=== PATIENT | female | born 1955 | race Caucasian/White ===

== ENCOUNTER → 2017-04-12 | Outpatient (CLI) | payer OTHER ==
[~2017-04-12] MED LIST: ALPR0.254 PO; BUPR300T4 PO; FAMO-63 PO; MULT1TAB52 PO; OXYC-328 PO; POLY17PO29 PO
[2017-04-12 10:41] LABS: BASO % 0 % (0-3); EOS % 0 % (0-3); HEMATOCRIT 42.5 % (36.0-47.0); LYMPH # 7.7 x10^3/uL (1.0-4.8); LYMPH % 59 % (24-48); MEAN CORPUSCULAR HEMOGLOBIN 31 pg (25-35); MEAN CORPUSCULAR HGB CONC 33 g/dL (31-37); MEAN CORPUSCULAR VOLUME 95 fL (79-100); MONO % 4 % (0-9); NEUT % 37 % (31-73); PLATELET COUNT 254 x10^3/uL (140-400); RED BLOOD COUNT 4.49 x10^6/uL (3.50-5.40); RED CELL DISTRIBUTION WIDTH 16.9 % (11.5-14.5)
[2017-04-12 10:57] LABS: ALBUMIN 3.7 g/dL (3.4-5.0); ALBUMIN/GLOBULIN RATIO 1.1 (1.0-1.7); CALCIUM 9.3 mg/dL (8.5-10.1); CREATININE 0.8 mg/dL (0.6-1.0); GFR 72.4; POTASSIUM 3.9 mmol/L (3.5-5.1); TOTAL BILIRUBIN 0.3 mg/dL (0.2-1.0); TOTAL PROTEIN 7.1 g/dL (6.4-8.2)
--- NOTE | 2017-04-12 11:25 | HP ---
ADMIT DATE: DATE OF SURGERY: 04/12/2017. Kana Hoang dictating for Dr. Yosvany Mccarthy. HISTORY OF PRESENT ILLNESS: This is a pleasant 61-year-old who has low back pain and a stabbing pain, which radiates into her right buttock and right posterior thigh. The problem began on 01/05/2017. She said on 01/17/2017, the symptoms became severe. The problem started spontaneously. She rates her pain as a 4/10 with oxycodone. She says it is to 9-10/10 without medications. Sitting and walking increases her pain. Lying on her left side with activity helps. She is unable to drive because of severe pain. She cannot sit for any length of time because of severe pain. Epidural steroid injections as well as physical therapy have been tried without success. PAST MEDICAL HISTORY: No past medical history. PAST SURGICAL HISTORY: Did have lumbar surgery x 2 in 2004, , lumbar diskectomy 2007, cholecystectomy in 2012. FAMILY HISTORY: Cancer, diabetes, heart problems/disease, hypertension, migraine. SOCIAL HISTORY: Retired. . Exercises weekly. Denies substance abuse. Drinks alcohol one to two times per month. Drinks coffee daily. ALLERGIES: ERYTHROMYCIN, BACTRIM AND DEXILANT. CURRENT MEDICATIONS: Bupropion, alprazolam, oxycodone, and MiraLax. REVIEW OF SYSTEMS: A 12-point review of systems was obtained and is noncontributory except for that mentioned above. PHYSICAL EXAMINATION: NEUROSURGERY EXAMINATION: GENERAL APPEARANCE: Alert, pleasant, no acute distress. HEAD: Normocephalic and atraumatic. SKIN: Warm and dry. MUSCULOSKELETAL: Lumbar paraspinal muscle bulk is normal, restricted motion of lumbar spine. Moderate tenderness of lower lumbar spine with palpation, normal range of motion of the lower extremities bilaterally except for limitation. Straight leg raising on the right. EXTREMITIES: No clubbing, cyanosis or edema. NEUROLOGIC: Alert and oriented x 3, normal recent and remote memory, strength 5/5 in bilateral lower extremities, sensory was intact to light touch in the lower extremities bilaterally, reflexes were trace and symmetric in bilateral lower extremities except for an absent right ankle jerk markedly positive straight leg raising on the right and a few degrees above horizontal relieved by Lasegue's maneuver, negative straight leg raising on the left, antalgic gait favoring her right leg. IMAGING: Reviewed. I reviewed lumbar myelogram and post-myelogram CT scan. At L5-S1, there is poor filling of the S1 nerve root sleeves. Postoperative changes are evident with laminotomy defect of L4-L5 on the right. I did not see significant disk herniation or central canal stenosis, but there was significant foraminal narrowing due to facet arthropathy and posterior vertebral body osteophytes, which are worse on the right at L5-S1. There was truncation of the right S1 nerve root at the level of L5-S1 disk. There was also mild retrolisthesis at L2-L3 without significant canal stenosis. There is only mild foraminal narrowing at the right associated with this. ASSESSMENT: 1. Radiculopathy, lumbosacral region. 2. Spinal stenosis, lumbosacral region. PLAN: I believe the problems at L5-S1 explain her pain. I recommended lumbar microsurgery to decompress the right S1 nerve root. She has had previous surgery at this level. I am going to use neuro imaging to assist. I expect I will have to take down much of the right L5-S1 facet to fully decompress the root. I discussed this all with her including the technique. I discussed the risks and expected postoperative course. She understands. She would like to go ahead. We will make the arrangements. YOSVANY MCCARTHY MD DR: DANIELLA/ching JOB#: [id number] / [id number]
== END | disposition home or self-care (01) ==
LOC: SURGPAT 10:08
PROVIDERS: ATTEND Neurological Surgery
DX: M48.061 Spinal stenosis, lumbar region without neurogenic claudication (principal); M54.16 Radiculopathy, lumbar region; M25.78 Osteophyte, vertebrae; I10 Essential (primary) hypertension; E11.9 Type 2 diabetes mellitus without complications
CPT/HCPCS: 36415; 80053; 85025; 87641

== ENCOUNTER 2017-04-19 07:48 | Day surgery (SDC) | payer OTHER ==
--- NOTE | 2017-04-17 15:53 | HP ---
ADMIT DATE: DATE OF SURGERY: 04/12/2017. Kana Hoang dictating for Dr. Yosvany Mccarthy. HISTORY OF PRESENT ILLNESS: This is a pleasant 61-year-old who has low back pain and a stabbing pain, which radiates into her right buttock and right posterior thigh. The problem began on 01/05/2017. She said on 01/17/2017, the symptoms became severe. The problem started spontaneously. She rates her pain as a 4/10 with oxycodone. She says it is to 9-10/10 without medications. Sitting and walking increases her pain. Lying on her left side with activity helps. She is unable to drive because of severe pain. She cannot sit for any length of time because of severe pain. Epidural steroid injections as well as physical therapy have been tried without success. PAST MEDICAL HISTORY: No past medical history. PAST SURGICAL HISTORY: Did have lumbar surgery x 2 in 2004, , lumbar diskectomy 2007, cholecystectomy in 2012. FAMILY HISTORY: Cancer, diabetes, heart problems/disease, hypertension, migraine. SOCIAL HISTORY: Retired. . Exercises weekly. Denies substance abuse. Drinks alcohol one to two times per month. Drinks coffee daily. ALLERGIES: ERYTHROMYCIN, BACTRIM AND DEXILANT. CURRENT MEDICATIONS: Bupropion, alprazolam, oxycodone, and MiraLax. REVIEW OF SYSTEMS: A 12-point review of systems was obtained and is noncontributory except for that mentioned above. PHYSICAL EXAMINATION: NEUROSURGERY EXAMINATION: GENERAL APPEARANCE: Alert, pleasant, no acute distress. HEAD: Normocephalic and atraumatic. SKIN: Warm and dry. MUSCULOSKELETAL: Lumbar paraspinal muscle bulk is normal, restricted motion of lumbar spine. Moderate tenderness of lower lumbar spine with palpation, normal range of motion of the lower extremities bilaterally except for limitation. Straight leg raising on the right. EXTREMITIES: No clubbing, cyanosis or edema. NEUROLOGIC: Alert and oriented x 3, normal recent and remote memory, strength 5/5 in bilateral lower extremities, sensory was intact to light touch in the lower extremities bilaterally, reflexes were trace and symmetric in bilateral lower extremities except for an absent right ankle jerk markedly positive straight leg raising on the right and a few degrees above horizontal relieved by Lasegue's maneuver, negative straight leg raising on the left, antalgic gait favoring her right leg. IMAGING: Reviewed. I reviewed lumbar myelogram and post-myelogram CT scan. At L5-S1, there is poor filling of the S1 nerve root sleeves. Postoperative changes are evident with laminotomy defect of L4-L5 on the right. I did not see significant disk herniation or central canal stenosis, but there was significant foraminal narrowing due to facet arthropathy and posterior vertebral body osteophytes, which are worse on the right at L5-S1. There was truncation of the right S1 nerve root at the level of L5-S1 disk. There was also mild retrolisthesis at L2-L3 without significant canal stenosis. There is only mild foraminal narrowing at the right associated with this. ASSESSMENT: 1. Radiculopathy, lumbosacral region. 2. Spinal stenosis, lumbosacral region. PLAN: I believe the problems at L5-S1 explain her pain. I recommended lumbar microsurgery to decompress the right S1 nerve root. She has had previous surgery at this level. I am going to use neuro imaging to assist. I expect I will have to take down much of the right L5-S1 facet to fully decompress the root. I discussed this all with her including the technique. I discussed the risks and expected postoperative course. She understands. She would like to go ahead. We will make the arrangements. YOSVANY MCCARTHY MD DR: DANIELLA/ching JOB#: [id number] / [id number]
[~2017-04-19] VITALS: Ht 170.2 cm; Wt 70.8 kg
[~2017-04-19 07:48] MED LIST changes: +BUPIVAC MPF-EPI 0.5%-1:200000 30 ML VIAL. ONE; +GELATIN SPONGE SIZE 100. ONE; +HYDROmorphone 2 MG/ML VIAL IV PRN; +IV RINGERS,LACTATED 1000ML 1,000 ML IV SCH; +KETOROLAC 60 MG/2 ML INJ FOR OR. ONE; +LIDOCAINE 1% PF 2 ML VIAL. ID PRN; +MORPHINE SULFATE 2 MG/ML DISP.SYRIN. IV PRN; +ONDANSETRON PF 4 MG/2 ML VIAL. IV PRN; +PROCHLORPERAZINE 10 MG/2 ML VIAL. IV PRN; +THROMBIN TOPICAL 20,000 UNIT SPRAY.SYRN KIT TP ONE; +fentaNYL PF VIAL 100 MCG/2 ML VIAL IV PRN
[2017-04-19] MEDS ORDERED: MIDAZOLAM HCL/PF 2 MG/2 ML VIAL. ONE (10:12)
[2017-04-19] MEDS ORDERED: ROCURONIUM 50 MG/5 ML VIAL. ONE (10:12)
[2017-04-19] MEDS ORDERED: REMIFENTANIL 2 MG VIAL. IV ONE (10:12)
[2017-04-19] MEDS ORDERED: DEXAMETHASONE SOD PHOS 20 MG/5 ML VIAL. ONE (10:13)
[2017-04-19] MEDS ORDERED: GLYCOPYRROLATE 1 MG/5 ML VIAL. ONE (10:13)
[2017-04-19] MEDS ORDERED: LIDOCAINE 2% PF Vial for OR 5 ML VIAL. ONE (10:13)
[2017-04-19] MEDS ORDERED: PROPOFOL 20 ML IV ONE (10:13)
[2017-04-19] MEDS ORDERED: PHENYLEPHRINE 10 MG/ML VIAL. ONE (10:13)
[2017-04-19] MEDS ORDERED: DESFLURANE > 120 MINUTES IH ONE (10:13)
[2017-04-19] MEDS ORDERED: PROPOFOL 50 ML IV ONE ×2 (10:13→11:45)
[2017-04-19] MEDS ORDERED: ONDANSETRON PF 4 MG/2 ML VIAL. ONE (10:13)
[2017-04-19] MEDS ORDERED: BUPIVAC MPF-EPI 0.5%-1:200000 30 ML VIAL. INJ ONE ×4 (10:20→11:44)
[2017-04-19] MEDS ORDERED: KETOROLAC 60 MG/2 ML INJ FOR OR. INJ ONE ×4 (10:21→11:44)
[2017-04-19] MEDS: BACITRACIN 50,000 UNIT in IV NORMAL SALINE 1000ML BAG 1,000 ML IRR ONE ×4 (10:24→11:44)
[2017-04-19] MEDS ORDERED: GELATIN SPONGE SIZE 100. TP ONE (11:44)
[2017-04-19] MEDS ORDERED: THROMBIN TOPICAL 20,000 UNIT SPRAY.SYRN KIT TP ONE (11:44)
[2017-04-19] MEDS ORDERED: KETAMINE HCL 500 MG/10 ML VIAL. ONE (11:46)
[2017-04-19] MEDS ORDERED: fentaNYL PF VIAL 100 MCG/2 ML VIAL ONE (13:20)
--- NOTE | 2017-04-19 14:22 | OP ---
DATE OF SURGERY: 04/19/2017 PREOPERATIVE DIAGNOSES: Lateral stenosis and foraminal narrowing, L5-S1, right with severe right lumbar radiculopathy. POSTOPERATIVE DIAGNOSES: Lateral stenosis and foraminal narrowing, L5-S1, right with severe right lumbar radiculopathy. OPERATION PERFORMED: Reop hemilaminotomy with decompression of the right S1 nerve root and transforaminal decompression of the right L5 root with microdiscectomy, L5-S1, right. The operation was done with EMG monitoring, fluoroscopy, microscopic dissection. The operation also utilized BrainLAB guidance. SURGEON: Yosvany Mccarthy M.D. ACCOUNT COORDINATOR: Zach Griffith MD assisted with surgery. He assisted with exposure, the microdiscectomy as well as the closure. OPERATIVE INDICATIONS: This patient has undergone three lumbar surgeries in the past and had done well until recently when she developed recurrence of severe back and right leg pain. She was studied with fluoroscopy and on that study the right S1 root did not fill and there was thickened hypertrophic facet and clear narrowing of the right neural foramen as well as evidence of non-filling of the right S1 nerve root. I recommended lumbar microsurgery. I spoke with her about the surgery and the risks. I explained that this may not help her, but because of her excruciating severe pain and failure to improve with time and any conservative measures including epidural steroids and physical therapy, I was willing to operate. I discussed with her the technique of the operation, the rationale for using BrainLAB guidance and that she has undergone 3 previous surgeries. I spoke with her about the technique of the operation, she understood, she wished to go ahead. DESCRIPTION OF PROCEDURE: Following general endotracheal anesthesia, the patient was positioned prone on the [place] table with lumbar regions prepped and draped in standard fashion. BHAVANA hose and AV impulse boots were applied for DVT prophylaxis. A microscope was draped. Fluoroscopy was draped and brought into the field. Monitoring was established. Ancef 2 grams was given less than 1 hour prior to initiation of the surgery. The BrainLAB system was initialized after iliac screws were placed in the left iliac crest. I then made a midline incision extending over the L5-S1 interspace. I dissected down through skin, subcutaneous tissue, reflected the paraspinal muscles carefully working around the areas of the previous extensive hemilaminotomy and created an exposure. I then used a high speed air drill and drilled superiorly and inferiorly and enlarged the hemilaminotomy. The nerve root and dura were densely scarred to the inside of the pedicle wall and the lateral canal. Diligently working superiorly, I drilled through the facet and then thinned the bone over the nerve root medially and then peeled this bone away after freeing up scar and I worked superiorly with this. I moved superiorly to visualize clearly the right S1 root and we gently retracted this medially. There was a scar down onto the disc space, but we freed much of that. The disc was largely collapsed. I did not see a significant fragment. I did free up the nerve and entered into the disc space and removed some disc material and as we worked around the nerve root and removed scar and improved our exposure, the root became freer. I then worked farther superiorly until I could visualize the L5 root and there was a focal piece of hypertrophic facet with some residual ligament, which was knuckled down on to the root and I freed this up and peeled this back and removed this material, and I assured myself that the exiting root was quite free. I then explored carefully and assured myself that the L5 and the S1 roots were free and unimpeded. There were no retained fragments. There was no evidence of any pressure whatsoever on those roots. I irrigated copiously. I did during the operation use bone wax for hemostasis as well as a bipolar cautery where necessary. At this point, then I irrigated, removed the retractor, obtained hemostasis in the muscle and closed in layers with absorbable suture. The skin was closed with 4-0 subcuticular stitch. The operation went very well. I was quite pleased with the surgery. YOSVANY MCCARTHY MD DR: DANIELLA/chign JOB#: [id number] / [id number] ROBERT
--- NOTE | 2017-04-19 14:22 | DISCH ---
DISCHARGE INSTRUCTIONS Condition on Discharge Condition on Discharge: Stable Activity After Discharge Activity Instructions for Disc: Activity as tolerated, Avoid exertion Other activity instructions: no driving for a week Bathing Instructions: Shower-keep dressing dry Lifting Instructions after Dis: No heavy lifting, No pulling or pushing, Do not lift >10 pounds Diet after Discharge Additional Diet Restrictions: resume home diet Wound Incision Care Wound/Incision Care: Ice to area for comfort Other wound/incision instructi: may remove dressing in 48 hrs if dry then may shower- no soaking Contacting the after DC Call your doctor for: Concerns you may have Follow-Up Follow up with: Dr. Mccarthy's nurse in 2 weeks [phone] ISABEL MCCARTHY MD Apr 19, 2017 14:22
[2017-04-19] MEDS ORDERED: DOCU-109 PO (14:24)
[2017-04-19] MEDS ORDERED: METH-38 PO (14:24)
[2017-04-19] MEDS: fentaNYL PF VIAL 100 MCG/2 ML VIAL IV PRN ×2 (14:29→14:46)
[2017-04-19] MEDS ORDERED: LABETALOL 20 MG/4 ML DISP.SYRIN. IVP PRN (14:30)
[2017-04-19] MEDS ORDERED: oxyCODONE/APAP 10/325 1 TAB TABLET PO ONE (15:30)
[2017-04-19 16:15] VITALS: BP 152/75
--- NOTE | 2017-04-20 13:57 | PATHOLOGY ---
PATHOLOGY REPORT * * * * * * * * FINAL DIAGNOSIS: Segments of fibrocartilaginous and fibroadipose tissue and bone, lumbar decompression: - Degenerative changes of fibrocartilaginous tissue. COMMENT: There is no evidence of an acute inflammatory process or malignancy. (JPM:; 04/20/2017) REPORT ELECTRONICALLY SIGNED BY: Curtis Hackett M.D. DATE/TIME: 04/20/2017 13:56 * * * * * * * * GROSS PATHOLOGY: Received in formalin labeled "Velma Godoy, lumbar decompression," are multiple segments of fonseca-white and yellow rubbery and gritty tissue measuring 2.4 x 2.0 x 0.6 cm in aggregate dimensions, containing small fragments of possible bone. The tissue is submitted entirely in cassette A1, following decalcification. (TSD; 04/19/2017) INITIAL CPT CODE(S): A; 39114, 63847 Professional services performed by [facility] [place] [address] Technical services performed by [facility] at [address] [place] [address] [address] [address]. SPECIMEN(S) RECEIVED: A.Lumbar decompression CLINICAL HISTORY: Lumbar stenosis, radiculopathy PATIENT: VELMA GODOY /AGE: 510/12/1955 (Age: 61) PATIENT #: [id number] ALT CASE #: SPECIMEN COLLECTION DATE: 04/19/2017 SPECIMEN RECEIVED DATE: 04/19/2017 [facility] - [address] [place] [address] - PHONE: [phone] * * * END OF REPORT * * *
== END 2017-04-19 17:10 | disposition home or self-care (01) ==
LOC: SURG 07:48
PROVIDERS: ATTEND Neurological Surgery
DX: M48.07 Spinal stenosis, lumbosacral region (principal); M54.16 Radiculopathy, lumbar region; Z83.3 Family history of diabetes mellitus; Z82.49 Family history of ischemic heart disease and other diseases of the circulatory system; Z80.9 Family history of malignant neoplasm, unspecified
CPT/HCPCS: 63047; 72131; 76000; 88304; 88311; 97161; J0690; J1100; J1885; J2250; J2405; J2704; J3010; J3490; J7030; J2001

== ENCOUNTER → 2021-02-26 | Outpatient (CLI) | payer MEDICARE, OTHER ==
[~2021-02-26] MED LIST changes: -BUPIVAC MPF-EPI 0.5%-1:200000 30 ML VIAL. ONE; -BUPR300T4 PO; +BUPR300T92 PO; +DOCU-109 PO; -GELATIN SPONGE SIZE 100. ONE; -HYDROmorphone 2 MG/ML VIAL IV PRN; -IV RINGERS,LACTATED 1000ML 1,000 ML IV SCH; -KETOROLAC 60 MG/2 ML INJ FOR OR. ONE; -LIDOCAINE 1% PF 2 ML VIAL. ID PRN; +METH-38 PO; -MORPHINE SULFATE 2 MG/ML DISP.SYRIN. IV PRN; +MULT-445 PO; -MULT1TAB52 PO; -ONDANSETRON PF 4 MG/2 ML VIAL. IV PRN; -OXYC-328 PO; +OXYC1TAB22 PO; -PROCHLORPERAZINE 10 MG/2 ML VIAL. IV PRN; -THROMBIN TOPICAL 20,000 UNIT SPRAY.SYRN KIT TP ONE; -fentaNYL PF VIAL 100 MCG/2 ML VIAL IV PRN
--- NOTE | 2021-02-26 12:32 | RAD ---
EXAM: Pelvis and right hip, 2 views. HISTORY: Pain. COMPARISON: None. FINDINGS: A frontal view of the pelvis and frog-leg view the right hip are obtained. There is no frac ture, dislocation or subluxation. There are few benign bone islands. There is a small bump at the rig ht femoral head-neck junction, suggesting a component of chronic hip impingement. IMPRESSION: 1. No acute osseous finding. 2. Findings suggesting a component of mild chronic right hip impingement. Electronically signed by: Princess Patel MD (02/26/2021 12:29 PM) [id number]
== END ==
LOC: RAD 11:06
PROVIDERS: ATTEND Neurological Surgery
DX: M25.551 Pain in right hip (principal)
CPT/HCPCS: 73501